=== PATIENT | male | born 1970 | race Caucasian/White ===

== ENCOUNTER 2017-12-10 05:34 | Emergency (ER) | payer OTHER ==
[~2017-12-10] VITALS: Ht 175.3 cm; Wt 72.6 kg
[~2017-12-10 05:34] MED LIST: ANTIFUNGAL30 GM TRANSDERM; AUGMENTIN 875-1 EACH PO; BENADRYL25 MG PO; CLEOCIN HCL300 MG PO; HYDROCHLOROTH12.5 MG PO; HYDROCODON-ACE1 EAC7; LISINOPRIL-HCT1 EAC2 PO; MOBIC7.5 MG PO; MUCINEX600 MG PO; NEXIUM; NEXIUM40 MG; NORVASC 5 MG TAB5 MG PO; PREDNISONE 20 M20 M1 PO; PRINIVIL
[2017-12-10] MEDS ORDERED: IBUPROFEN 200200 M1 PO (05:42)
[2017-12-10] MEDS ORDERED: PROBIOTIC1 EAC1 PO (05:42)
[2017-12-10 07:45] LABS: ABSOLUTE BASOPHILS 0.1 thou/uL (0.0-0.2); ABSOLUTE LYMPHOCYTES 1.5 thou/uL (0.8-5.3); ABSOLUTE MONOCYTES 0.6 thou/uL (0.0-1.2); ABSOLUTE NEUTROPHILS 6.9 thou/uL (1.6-8.1); BASOPHILS 1.1 %; EOSINOPHILS 0.5 %; HEMATOCRIT 44.4 % (42.0-52.0); HEMOGLOBIN 15.4 gm/dL (14.0-18.0); LYMPHOCYTES 16.1 %; MCH 33.7 pg (26.0-34.0); MCHC 34.6 g/dL (28.0-37.0); MCV 97.4 fL (80.0-100.0); MONOCYTES 6.8 %; NUCLEATED RBCS 0 /100WBC; PLATELET COUNT* 242 thou/uL (150-400); POLYS 75.5 %; RBC 4.56 mil/uL (4.50-6.00); RDW-CV 13.3 % (10.5-14.5); WBC 9.1 thou/uL (4.0-11.0)
[2017-12-10 07:52] LABS: ANION GAP 10 mmol/L (7-16); BUN 5 mg/dL (7-18); CALCIUM 8.6 mg/dL (8.5-10.1); CHLORIDE 100 mmol/L (98-107); CO2 27 mmol/L (21-32); CREATININE 0.7 mg/dL (0.6-1.3); GLUCOSE 98 mg/dL (70-99); SODIUM 137 mmol/L (136-145)
[2017-12-10 07:59] LABS: ALBUMIN 4.1 g/dL (3.4-5.0); ALKALINE PHOSPHATASE 154 U/L (46-116); SGOT 56 U/L (15-37); SGPT 66 U/L (30-65); TOTAL BILIRUBIN 0.3 mg/dL (<0.1-1.0); TOTAL PROTEIN 7.9 g/dL (6.4-8.2); TROPONIN-I LEVEL <0.06 ng/mL (<0.06)
[2017-12-10 08:52] VITALS: BP 129/92
--- NOTE | 2017-12-10 13:01 | EKG ---
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 ENRIQUEZ : 1970 Requested By: Alex Sargent Order Number: [id number] MD: Dao Martinez Measurements Intervals [place] Rate: 94 P: 59 FL: 146 QRS: -54 QRSD: 97 T: 47 QT: 366 QTc: 458 Interpretive Statements Sinus rhythm Left anterior fascicular block Abnormal R-wave progression, early transition Compared to ECG 08/18/2016 21:17:43 Sinus tachycardia no longer present Electronically Signed On 12-10-2017 13:01:32 [employer] SETTER HEL[employer] by Dao Martinez [email or web address] <ELECTRONICALLY SIGNED> By: Dao Martinez MD, [facility] 12/10/17 1301 0729 8 Dao Martinez MD, [facility] /EPI
== END 2017-12-10 08:20 | disposition short-term general hospital (02) ==
LOC: M.ERS 05:34
PROVIDERS: Emergency Medicine Emergency Medical Services
DX: S01.81XA Laceration without foreign body of other part of head, initial encounter (principal); S06.5X0A Traumatic subdural hemorrhage without loss of consciousness, initial encounter; S02.40FA Zygomatic fracture, left side, initial encounter for closed fracture; I10 Essential (primary) hypertension; F17.210 Nicotine dependence, cigarettes, uncomplicated; Z88.8 Allergy status to other drugs, medicaments and biological substances; W00.0XXA Fall on same level due to ice and snow, initial encounter; Y93.89 Activity, other specified; Y92.89 Other specified places as the place of occurrence of the external cause; Y99.8 Other external cause status

== ENCOUNTER → 2018-09-28 | Outpatient (CLI) | payer OTHER ==
[~2018-09-28] MED LIST changes: +IBUPROFEN 200200 M1 PO; +PROBIOTIC1 EAC1 PO
== END ==
LOC: M.MRI 09-22 11:58
DX: M47.812 Spondylosis without myelopathy or radiculopathy, cervical region (principal); R42 Dizziness and giddiness; M50.221 Other cervical disc displacement at C4-C5 level; M25.78 Osteophyte, vertebrae; M48.03 Spinal stenosis, cervicothoracic region; Z87.828 Personal history of other (healed) physical injury and trauma

== ENCOUNTER 2019-12-28 12:10 | Emergency (ER) | payer OTHER ==
[~2019-12-28] VITALS: Ht 175.3 cm; Wt 81.7 kg
[2019-12-28 12:41] LABS: INFLUENZA A ANTIGEN Negative (Negative); INFLUENZA B ANTIGEN Negative (Negative)
[2019-12-28] MEDS ORDERED: AUGMENTIN 500-1 EACH PO (13:03)
[2019-12-28] MEDS ORDERED: MEDROLDOSEPACK PO (13:03)
[2019-12-28 13:35] VITALS: BP 127/98
== END 2019-12-28 13:36 | disposition home or self-care (01) ==
LOC: M.ERS 12:10
PROVIDERS: Physician Assistant
DX: J01.00 Acute maxillary sinusitis, unspecified (principal); I10 Essential (primary) hypertension; F17.210 Nicotine dependence, cigarettes, uncomplicated; Z88.8 Allergy status to other drugs, medicaments and biological substances

== ENCOUNTER → 2021-06-12 | Outpatient (CLI) | payer OTHER ==
[~2021-06-12] MED LIST changes: +AUGMENTIN 500-1 EACH PO; +MEDROLDOSEPACK PO
== END ==
LOC: M.MRI 06-03 12:09
PROVIDERS: ATTEND Nurse Practitioner Family
DX: M51.36 Other intervertebral disc degeneration, lumbar region (principal); F17.200 Nicotine dependence, unspecified, uncomplicated; R10.9 Unspecified abdominal pain